=== PATIENT | female | born 1955 | race Caucasian/White ===

== ENCOUNTER 2024-01-18 09:03 | Outpatient (CLI) | payer MEDICARE, BC ==
[~2024-01-18 09:03] MED LIST: ASPI-611 PO; CALC-1215 PO; EST1T PO; FERR325C PO; GLUC-193 PO; MELO-102 PO; MULT-1141 PO; OMEG-166 PO; OXYB5TAB21 PO; OXYC-150 PO; RESV100C PO; ZOLP10TA PO
== END 2024-01-18 23:59 | disposition home or self-care (01) ==
LOC: RAD 09:03
PROVIDERS: ATTEND Podiatrist Foot & Ankle Surgery
DX: M19.071 Primary osteoarthritis, right ankle and foot (principal); M25.871 Other specified joint disorders, right ankle and foot; M89.8X8 Other specified disorders of bone, other site
CPT/HCPCS: 73700